=== PATIENT | female | born 1930 | race Caucasian/White ===

== ENCOUNTER 2020-12-20 15:26 | Emergency (ER) | payer OTHER, MEDICARE ==
[2020-12-20 15:52] VITALS: TEMP 98.8; BMI 17.2
[2020-12-20 18:50] VITALS: BP 140/88; PULSE 78
== END 2020-12-21 01:09 ==
LOC: FER 15:26
DX: S09.90XA Unspecified injury of head, initial encounter (principal)
CPT/HCPCS: 70450-TC; 72125-TC; 99285-25